=== PATIENT | male | born 1950 | race Two or more races ===

== ENCOUNTER 2018-02-22 14:28 | Emergency (ER) | payer MEDICARE, OTHER ==
[~2018-02-22] VITALS: Ht 172.7 cm; Wt 77.1 kg
[2018-02-22 14:43] VITALS: BP 162/92
[2018-02-22] MEDS ORDERED: KETOROLAC TROMETH 60MG/2ML VIAL IM ONE (16:15)
== END 2018-02-22 16:28 | disposition home or self-care (01) ==
LOC: ER 14:37
DX: S13.4XXA Sprain of ligaments of cervical spine, initial encounter (principal); E78.5 Hyperlipidemia, unspecified; I10 Essential (primary) hypertension; V49.49XA Driver injured in collision with other motor vehicles in traffic accident, initial encounter; Y93.I9 Activity, other involving external motion; Y92.488 Other paved roadways as the place of occurrence of the external cause; Y99.8 Other external cause status
CPT/HCPCS: 72125; 96372; 99284; J1885